=== PATIENT | female | born 1970 | race Caucasian/White ===

== ENCOUNTER 2017-04-25 11:22 | Inpatient (IN) | payer OTHER ==
[2017-04-25 11:37] VITALS: BMI 20.3
[2017-04-25 12:15] LABS: BASOPHIL 0.5 % (0-2.0); EOSINOPHIL 0.1 % (0-4.5); MCH 30.1 pg (25.7-33.7); MCHC 34.1 g/dl (32.0-36.0); MEAN CELL VOLUME 88.3 fl (80-96); MEAN PLT VOLUME 7.3 fl (7.5-11.1); NEUTROPHILS 82.9 % (42.8-82.8); PLATELET COUNT 407 K/MM3 (134-434); RDW 14.7 % (11.6-15.6); WHITE BLOOD COUNT 8.2 K/mm3 (4.0-10.0)
[2017-04-25] MEDS ORDERED: SODIUM CHLORIDE 1,000 ML IV STA (12:49)
[2017-04-25] MEDS ORDERED: ONDANSETRON 4 MG/2 ML VIAL IVPUSH ONE (12:49)
[2017-04-25] MEDS ORDERED: morphine CARPU-JECT 4 MG/1 ML DISP.SYRIN IVPUSH ONE (12:49)
--- NOTE | 2017-04-25 12:54 | PDOC ---
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 She states that the pain radiates up into her chest and arm. Admits to nausea and vomiting over the past 4 weeks. She 's been unable to keep anything down, food or liquid. Admits to excess saliva. She tried taking meclizine for her nausea with no relief. She states that her pain is currently a 10 out of 10. She describes it as a constant sharp pain. Patient is not on chemotherapy at this time. Her last dose of chemotherapy was approximately 3 weeks ago. Her her oncologist she was taking Xeliri , and the patient was unable to tolerate swallowing the pills. She also received this medication infusions however she stopped going for her infusions approximately 3 weeks ago. Denies fevers, chills, recent illness, shortness of breath, diarrhea, constipation, frequency, urgency, hematuria. Past History - Travel Traveled outside of the country in the last 30 days: No Close contact w/someone who was outside of country & ill: No - Past Medical History Allergies/Adverse Reactions: Allergies Allergy/AdvReac Type Severity Reaction Status Date / Time No Known Allergies Allergy Verified 04/25/17 11:57 Home Medications: Ambulatory Orders Famotidine [Pepcid -] 20 mg PO DAILY 04/25/17 Metoclopramide HCl 10 mg PO ASDIR PRN 04/25/17 Ondansetron [Zofran Odt -] 4 mg SL TID PRN 04/25/17 Cancer: Yes (STOMACH) COPD: No GI Disorders: Yes (ACID REFLUX) - Suicide/Smoking/Psychosocial Hx Smoking History: Never smoked Review of Systems - Review of Systems Able to Perform ROS?: Yes Comments:: 04/25/17 17:22 CONSTITUTIONAL: Absent: fever, chills, diaphoresis, generalized weakness, malaise, loss of appetite HEENT: Absent: rhinorrhea, nasal congestion, throat pain, throat swelling, difficulty swallowing, mouth swelling, ear pain, eye pain, visual Changes CARDIOVASCULAR: Present: chest pain Absent: loss of consciousness, palpitations, irregular heart rate, peripheral edema RESPIRATORY: Absent: cough, shortness of breath, dyspnea with exertion, orthopnea, wheezing, stridor, hemoptysis GASTROINTESTINAL: Absent: abdominal pain, abdominal distension, nausea, vomiting, diarrhea, constipation, melena, hematochezia GENITOURINARY: Absent: dysuria, frequency, urgency, hesitancy, hematuria, flank pain, genital pain MUSCULOSKELETAL: Absent: myalgia, arthralgia, joint swelling SKIN: Absent: rash, itching, pallor HEMATOLOGIC/IMMUNOLOGIC: Absent: easy bleeding, easy bruising, lymphadenopathy, frequent infections ENDOCRINE: Absent: unexplained weight gain, unexplained weight loss, heat intolerance, cold intolerance NEUROLOGIC: Absent: headache, focal weakness or paresthesias, dizziness, unsteady gait, seizure, mental status changes, bladder or bowel incontinence PSYCHIATRIC: Absent: anxiety, depression, suicidal or homicidal ideation, hallucinations. 04/25/17 17:23 Is the patient limited Swedish proficient: No *Physical Exam - Vital Signs Last Vital Signs Temp Pulse Resp BP Pulse Ox 97.0 F L 81 18 137/100 100 04/25/17 11:32 04/25/17 11:32 04/25/17 11:32 04/25/17 11:32 04/25/17 11:32 - Physical Exam Comments: 04/25/17 19:00 GENERAL: Under-weight. Awake and alertx3. Mild distress, c./o abdominal pain. HEENT: Normocephalic, atraumatic. PERRLA, EOMI. No conjunctival pallor. Sclera are non- icteric. Moist mucous membranes. Oropharynx is clear. NECK: Supple. Full ROM. No JVD. Carotid pulses 2+ and symmetric, without bruits. No thyromegaly. No lymphadenopathy. CARDIOVASCULAR: Regular rate and rhythm. No murmurs, rubs, or gallops. Distal pulses are 2+ and symmetric. PULMONARY: TTP of L chest wall. No evidence of respiratory distress. Lungs clear to auscultation bilaterally. No wheezing, rales or rhonchi. ABDOMINAL: Diffuse TTP, distended, mass felt over the suprapubic region. No rebound or guarding. No organomegaly. Normoactive bowel sounds. MUSCULOSKELETAL Normal range of motion at all joints. No bony deformities or tenderness. No CVA tenderness. EXTREMITIES: TTP of left extremity. No cyanosis. No clubbing. No edema. No calf tenderness. SKIN: Warm and dry. Normal capillary refill. No rashes. No jaundice. NEUROLOGICAL: Alert, awake, appropriate. Cranial nerves 2-12 intact. No deficits to light touch and temperature in face, upper extremities and lower extremities. No motor deficits in the in face, upper extremities and lower extremities. Normoreflexic in the upper and lower extremities. Normal speech. Toes are down- going bilaterally. Gait is normal without ataxia. PSYCHIATRIC: Cooperative. Good eye contact. Appropriate mood and affect. ED Treatment Course - LABORATORY CBC & Chemistry Diagram: 04/25/17 12:10 04/25/17 11:57 - ADDITIONAL ORDERS Additional order review: 04/25/17 12:10 RBC 4.99 MCV 88.3 MCHC 34.1 RDW 14.7 MPV 7.3 L Neutrophils % 82.9 H Lymphocytes % 9.9 Monocytes % 6.6 Eosinophils % 0.1 Basophils % 0.5 Medical Decision Making - Medical Decision Making 04/25/17 15:02 Patient is a 46-year-old female with past medical history of stage IV gastric adenocarcinoma not on chemo, BIBA to the emergency department today complaining of diffuse abdominal pain and weakness. Given patient history, concerned for potential SBO, perforation, worsening of cancer. We will initiate abdominal workup at this time. We'll also try to get in contact with the patient's oncologist, Dr. Anna Perez from [facility]. 1. CBC, CMP, PT/INR, UA, UC 2. EKG, CTAP with contrast 3. Morphine, Zofran 4. Re-evaluate 04/25/17 16:18 Patient is feeling a little better after morphine and Zofran. She states that her pain is now 6 out of 10. Lab work is unremarkable at this time no leukocytosis or neutropenia, H&H is stable. CT abdomen shows: 1.August bilateral pleural effusions with lower lobe atelectasis. 2.large amount of ascites. 3.enhancing material within the ascites consistent with extensive peritoneal implants. 4.no evidence of bowel obstruction or acute pathology within the abdomen or pelvis. Given results pt may benifit from a palliative pleuralcentsis. Will contact Dr. Perez for further recommendations 04/25/17 16:38 Received call from patient's oncologist. 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 Patient has undergone 11 rounds of Firi- paclotaxil chemotherapy. She most recently has been taking Xeliri, but has failed outpatient treatment due to inability to tolerate the medication. It is under her oncologist's recommendation that she consider palliative care however the family has been rescistent in the past. Agrees pt. should be worked for pleuralcentisis. Dr. Perez pager number: She would like a call at discharge regarding summary of care and to set up follow up. We will contact hospitalists at this time. 04/25/17 16:[address] Fuentes. Case was discussed. Will accept the patient for observation for pleurocentesis and palliative care consult. *DC/Admit/Observation/Transfer Diagnosis at time of Disposition: Gastric cancer Qualifiers: Malignant neoplasm of stomach location: unspecified location Qualified Code(s) : C16.9 - Malignant neoplasm of stomach, unspecified Intractable vomiting Qualifiers: Vomiting type: unspecified Nausea presence: with nausea Qualified Code(s): R11.2 - Nausea with vomiting, unspecified Ascites Qualifiers: Ascites type: malignant Qualified Code(s): R18.0 - Malignant ascites - Discharge Dispostion Condition at time of disposition: Stable Admit: Yes - Referrals - Patient Instructions - Post Discharge Activity
[2017-04-25] MEDS ORDERED: morphine SULFATE 4 MG/ML VIAL ONE (12:57)
[2017-04-25 12:58] LABS: ALBUMIN 2.8 g/dl (3.4-5.0); ANION GAP 13 (8-16); BILIRUBIN,TOTAL 1.3 mg/dL (0.2-1.0); CALCIUM 8.6 mg/dL (8.5-10.1); CO2 27 mmol/L (21-32); CREATININE 0.9 mg/dL (0.55-1.02); GLUCOSE,RANDOM 87 mg/dL (74-106); SGOT/AST 14 U/L (15-37); SGPT/ALT 13 U/L (12-78)
[2017-04-25] MEDS ORDERED: ONDANSETRON 4 MG/2 ML VIAL ONE (12:58)
[2017-04-25 13:02] LABS: ALK PHOS 80 U/L (45-117); CPK 29 IU/L (26-192); TOT PROT 6.1 g/dl (6.4-8.2); TROPONIN I < 0.02 ng/ml (0.00-0.05)
[2017-04-25 13:44] LABS: INR 1.26 (0.82-1.09); PROTHROMBIN TIME (PATIENT) 14.2 SEC (9.98-11.88)
[2017-04-25] MEDS ORDERED: ACETAMINOPHEN 1000 MG/100 ML VIAL (NON FORMULARY) IVPB ONE (17:23)
--- NOTE | 2017-04-25 17:29 | PDOC ---
*Physical Exam - Vital Signs Last Vital Signs Temp Pulse Resp BP Pulse Ox 97.0 F L 81 18 137/100 100 04/25/17 11:32 04/25/17 11:32 04/25/17 11:32 04/25/17 11:32 04/25/17 11:32 - Physical Exam General Appearance: Yes: Other (no acute distress, thin) HEENT: positive: Other (dry mucous membranes) Respiratory/Chest: positive: Lungs Clear, Normal Breath Sounds Cardiovascular: positive: Regular Rhythm, Regular Rate, S1, S2. negative: Edema Gastrointestinal/Abdominal: positive: Normal Bowel Sounds, Tender (diffuse ttp) , Flat, Soft Musculoskeletal: negative: CVA Tenderness Extremity: positive: Normal Capillary Refill Integumentary: positive: Normal Color, Dry, Warm Neurologic: positive: Fully Oriented, Alert, Normal Mood/Affect ED Treatment Course - LABORATORY CBC & Chemistry Diagram: 04/25/17 12:10 04/25/17 11:57 - ADDITIONAL ORDERS Additional order review: Laboratory Results 04/25/17 04/25/17 12:50 11:57 PT with INR 14.20 H INR 1.26 H Sodium 137 Potassium 3.7 Chloride 97 L Carbon Dioxide 27 Anion Gap 13 BUN 22 H Creatinine 0.9 Creat Clearance w eGFR > 60 Random Glucose 87 Calcium 8.6 Magnesium 2.0 Total Bilirubin 1.3 H AST 14 L ALT 13 Alkaline Phosphatase 80 Creatine Kinase 29 Troponin I < 0.02 Total Protein 6.1 L Albumin 2.8 L 04/25/17 12:10 RBC 4.99 MCV 88.3 MCHC 34.1 RDW 14.7 MPV 7.3 L Neutrophils % 82.9 H Lymphocytes % 9.9 Monocytes % 6.6 Eosinophils % 0.1 Basophils % 0.5 - Medications Given in the ED: ED Medications Discontinued Medications Generic Name Dose Route Start Last Admin Trade Name Freq PRN Reason Stop Dose Admin Sodium Chloride 1,000 mls @ 1,000 mls/hr 04/25/17 12:49 04/25/17 13:03 Normal Saline - IV 04/25/17 13:48 1,000 mls/hr ASDIR STA Administration Morphine Sulfate 4 mg 04/25/17 12:49 04/25/17 13:03 Morphine Injection - IVPUSH 04/25/17 12:50 4 mg ONCE ONE Administration Ondansetron HCl 4 mg 04/25/17 12:49 04/25/17 13:03 Zofran Injection IVPUSH 04/25/17 12:50 4 mg ONCE ONE Administration Medical Decision Making - Medical Decision Making 04/25/17 17:26 46 yo F with stage iV gastric cancer, followd by oncology at [facility], here with intractable vomiting. unable to tolerate any po at home. also c/o diffuse abd pain. severe weakness. no f/c no cough no sob no chest pain plan: r/o electrolyte abnormality, dehydration, ct r/o gastric outlet obstruction. ho admit for FTT, severe dehydration and intractable vomiting. will try to reach pt private oncologist. seen and examined, in conjunction with FABIO Garcia, agree with her plan. cirilli *DC/Admit/Observation/Transfer Diagnosis at time of Disposition: Gastric cancer, Intractable vomiting - Referrals - Patient Instructions - Post Discharge Activity
[2017-04-25] MEDS ORDERED: ACETAMINOPHEN INJECTION 100 ML IVPB ONE (17:42)
[2017-04-25] MEDS ORDERED: morphine SULFATE 4 MG/ML VIAL IVPUSH PRN (18:43)
[2017-04-25] MEDS ORDERED: ONDANSETRON 4 MG/2 ML VIAL IVPB PRN (18:43)
[2017-04-25] MEDS ORDERED: METOCLOPRAMIDE HCL 10 MG TABLET (FP) PO PRN (18:49)
--- NOTE | 2017-04-25 18:55 | HP ---
CHIEF COMPLAINT: generalized weakness with nausea and vomiting. PCP: none ; oncology HISTORY OF PRESENT ILLNESS: 46 yo F with significant PMHx of stage IV Gastric adenocarcinoma diagnosed 2015 presents with abdominal pain with intractable nausea and vomiting. She states that for the past 3 weeks she has not had much of an appetite and has had not been able to hold any food down. She also complains of constant diffuse 10/10 abdominal pain. She has also been experiencing excessive salivation. She has been vomiting for the past few days nonbloody non billous. Today she was extremely week and felt the need to come to ED. Denies CP, BOSCH, palpitations. ER course was notable for: (1)CT abdomen shows Pleural effusion and large ascitis (2)Given IVF NS (3)EKG shows NSR with no ST or T wave abnormalities. Recent Travel:Denies PAST MEDICAL HISTORY:Gastric adenocarcinoma PAST SURGICAL HISTORY: x3 Social History: Smoking:never Alcohol:denies Drugs: denies Family History: Allergies No Known Allergies Allergy (Verified 04/25/17 11:57) HOME MEDICATIONS: Home Medications Medication Instructions Recorded Famotidine [Pepcid -] 20 mg PO DAILY 04/25/17 Metoclopramide HCl 10 mg PO ASDIR PRN 04/25/17 Ondansetron [Zofran Odt -] 4 mg SL TID PRN 04/25/17 REVIEW OF SYSTEMS CONSTITUTIONAL: generalized weakness, malaise, loss of appetite, weight change Absent: fever, chills, diaphoresis, HEENT: Absent: rhinorrhea, nasal congestion, throat pain, throat swelling, difficulty swallowing, mouth swelling, ear pain, eye pain, visual changes CARDIOVASCULAR: Absent: chest pain, syncope, palpitations, irregular heart rate, lightheadedness , peripheral edema RESPIRATORY: Absent: cough, shortness of breath, dyspnea with exertion, orthopnea, wheezing, stridor, hemoptysis GASTROINTESTINAL:abdominal pain, abdominal distension, nausea, vomiting, Absent: diarrhea, constipation, melena, hematochezia GENITOURINARY: Absent: dysuria, frequency, urgency, hesitancy, hematuria, flank pain, genital pain MUSCULOSKELETAL: Absent: myalgia, arthralgia, joint swelling, back pain, neck pain SKIN: Absent: rash, itching, pallor HEMATOLOGIC/IMMUNOLOGIC: Absent: easy bleeding, easy bruising, lymphadenopathy, frequent infections ENDOCRINE: Absent: unexplained weight gain, unexplained weight loss, heat intolerance, cold intolerance NEUROLOGIC: Absent: headache, focal weakness or paresthesias, dizziness, unsteady gait, seizure, mental status changes, bladder or bowel incontinence PSYCHIATRIC: Absent: anxiety, depression, suicidal or homicidal ideation, hallucinations. PHYSICAL EXAMINATION Vital Signs - 24 hr 04/25/17 04/25/17 04/25/17 11:32 18:12 18:32 Temperature 97.0 F L Pulse Rate 81 82 Pulse Rate [ 87 Apical] Respiratory 18 18 18 Rate Blood Pressure 137/100 119/88 Blood Pressure 119/88 [Right Arm] O2 Sat by Pulse 100 98 97 Oximetry (%) GENERAL: AAOx3, NAD, Cachectic HEAD: NC/AT EYES: PERRLA,EOMI sclera anicteric, conjunctiva clear. No lid lag. EARS, NOSE, THROAT: Dry mucous membranes. NECK: Supple, NO JVD LUNGS: CTAB. No wheezes, and no crackles. No accessory muscle use. HEART:RRR, normal S1 and S2, No M/G/R. ABDOMEN: Soft, periumbilical tenderness, normoactive bowel sounds,voluntary guarding, no rebound, no masses. MUSCULOSKELETAL: No bony deformities or tenderness. No CVA tenderness. UPPER EXTREMITIES: 2+ pulses, warm, well-perfused. No cyanosis. No clubbing. No peripheral edema. LOWER EXTREMITIES: 2+ pulses, warm, well-perfused. No calf tenderness. No peripheral edema. NEUROLOGICAL: Cranial nerves II-XII intact. Normal speech. PSYCHIATRIC: Cooperative. Good eye contact. Appropriate mood and affect. SKIN: Warm, dry, no rashes or lesions noted. Laboratory Results - last 24 hr 04/25/17 04/25/17 04/25/17 11:57 12:10 12:50 WBC 8.2 RBC 4.99 Hgb 15.0 Hct 44.1 MCV 88.3 MCH 30.1 MCHC 34.1 RDW 14.7 Plt Count 407 MPV 7.3 L Neutrophils % 82.9 H Lymphocytes % 9.9 Monocytes % 6.6 Eosinophils % 0.1 Basophils % 0.5 PT with INR 14.20 H INR 1.26 H Sodium 137 Potassium 3.7 Chloride 97 L Carbon Dioxide 27 Anion Gap 13 BUN 22 H Creatinine 0.9 Creat Clearance w eGFR > 60 Random Glucose 87 Calcium 8.6 Magnesium 2.0 Total Bilirubin 1.3 H AST 14 L ALT 13 Alkaline Phosphatase 80 Creatine Kinase 29 Troponin I < 0.02 Total Protein 6.1 L Albumin 2.8 L IMAGING: * [id number] CT/ABDOMEN PELVIS CT WITH CONTR HISTORY PROVIDED: Gastric CA. Sequential axial images were obtained from the domes of the diaphragms through the symphysis pubis following the administration of both oral and intravenous contrast material. There are large, bilateral pleural effusions with extensive atelectasis of the lower lobes. There is a large amount of ascites throughout the abdomen and pelvis. There is enhancing material within the ascites, predominantly within the lower abdomen and pelvis. This is consistent with peritoneal implants. The liver, spleen, pancreas, adrenal glands and kidneys demonstrate no significant abnormalities. There is no evidence of a gastric mass or gastric outlet obstruction. There is no evidence of pneumoperitoneum, bowel obstruction or intra-abdominal abscess. Examination of the pelvis demonstrates no evidence of pelvic masses or lymphadenopathy. The uterus is somewhat enlarged with prominent endometrium. There is no evidence of bony metastases or acute abnormalities. IMPRESSION: 1. Large bilateral pleural effusions and lower lobe atelectasis. 2. Large amount of ascites. 3. Enhancing material within the ascites consistent with extensive peritoneal implants. 4. No evidence of bowel obstruction or acute pathology within the abdomen or pelvis. Please see above discussion. Reported By: David Urias MD 04/25/17 [id number] ASSESSMENT/PLAN: 46 yo F with significant PMHx of stage IV Gastric adenocarcinoma diagnosed 2015 presents with abdominal pain with intractable nausea and vomiting admitted to med/surg for intractable vomiting and nausea with inability to tolerate PO. Problem List - Problem (1) Ascites Assessment/Plan: Most likely secondary to malignancy: * CT imaging as above. * Will contact IR for possible thoracentesis. * Held AC for now * Will initiate lovenox s/p thoracentesis * Echo pending to r/o pericardial effusion. (2) Gastric cancer Assessment/Plan: * F/u with Heme/Onc Qualifiers: Qualified Code(s): C16.9 - Malignant neoplasm of stomach, unspecified (3) Intractable vomiting Assessment/Plan: * Zofran Q4h PRN for nausea. * Morphine 2mg IV PRN. * NPO for now * will advance diet as tolerated. (4) Dehydration Assessment/Plan: this is a result of poor PO intake. * Will give IVF with NS @ 100ml/hr. (5) DVT prophylaxis Assessment/Plan: Given her history of cancer * Lovenox 40mg SQ daily Visit type - Emergency Visit Emergency Visit: Yes ED Registration Date: 04/25/17 Care time: The patient presented to the Emergency Department on the above date and was hospitalized for further evaluation of their emergent condition. - New Patient This patient is new to me today: Yes Date on this admission: 04/26/17 - Critical Care Critical Care patient: No
[2017-04-25] MEDS: SODIUM CHLORIDE 1,000 ML IV SCH (18:57)
[2017-04-25 19:09] LABS: CPK 25 IU/L (26-192); TROPONIN I < 0.02 ng/ml (0.00-0.05)
[2017-04-25 19:12] LABS: URINE APPEARANCE CLEAR; URINE BILIRUBIN NEGATIVE (NEGATIVE); URINE BLOOD NEGATIVE (NEGATIVE); URINE COLOR YELLOW; URINE GLUCOSE (UA) NEGATIVE (NEGATIVE); URINE KETONE 1+ (NEGATIVE); URINE NITRITE NEGATIVE (NEGATIVE); URINE PROTEIN NEGATIVE (NEGATIVE)
--- NOTE | 2017-04-25 20:11 | PN ---
Teaching Attending Note Name of Resident: Mason Fuentes ATTENDING PHYSICIAN STATEMENT I saw and evaluated the patient. Chart, imaging, data reviewed I reviewed the resident's note and discussed the case with the resident. I agree with the resident's findings and plan as documented with modifications below. SUBJECTIVE: 46-year-old female with stage IV gastric adenocarcinoma on chemotherapy with last cycle about 3 weeks ago, follows with oncologist at [facility]. Pt c/o diffuse abdominal pain and weakness x 1day, associated with nausea and vomiting. Pain was 10/10 at its worst but has improved now after pain medications. Pt has decreased appetite and currently not tolerating PO very well. She admits to producing a "lot of saliva". She reports mild shortness of breath previously which has improved. OBJECTIVE: Last Vital Signs Temp Pulse Resp BP Pulse Ox 97.0 F L 82 18 119/88 97 04/25/17 11:32 04/25/17 18:32 04/25/17 18:32 04/25/17 18:32 04/25/17 18:32 General- NAD, appears cheerful, cachectic, wasted appearance HEENT - sunken cheeks, moist oral mucosa, no sinus tenderness Neck -supple, no masses appreciated CV -s1+, s2+ RRR, no murmurs Chest - decreased basilar breath sounds bilaterally Abdomen epigastric tenderness upon palpation, no fluid wave appreciated. BS+, no rebound tenderness Ext - no clubbing, no pedal edema appreciated Skin- no rashes appreciated Abnormal Lab Results 04/25/17 04/25/17 04/25/17 11:57 12:10 12:50 MPV 7.3 L Neutrophils % 82.9 H PT with INR 14.20 H INR 1.26 H Chloride 97 L BUN 22 H Total Bilirubin 1.3 H AST 14 L Creatine Kinase Total Protein 6.1 L Albumin 2.8 L Urine Ketones Urine Urobilinogen 04/25/17 04/25/17 18:35 18:42 MPV Neutrophils % PT with INR INR Chloride BUN Total Bilirubin AST Creatine Kinase 25 L Total Protein Albumin Urine Ketones 1+ H Urine Urobilinogen 2.[address] of abdomen/pelvis C+ seen with report- b/l pleural effusions with resultant atelectasis, peritoneal seeding. No bowel obstruction. EKG sinus rhythm seen, low voltage ASSESSMENT AND PLAN: #46yo woman with stage 4 gastric adenocarcinom a with mets to peritoneum with acute on chronic abdominal pain and inability to tolerate PO. This is likely directly related to patient's underlying malignancy. Troponin negative -IVF hydration -morphine PRN for pain control -zofran IVPB PRN for nausea/vomiting -NPO currently -attempt to advance diet as toelrated starting with clear liquids -send lipase -f/u with oncologist #B/l pleural effusion w/ atelectasis - likely related to malignancy -IR consult for therapeutic and diagnostic pleuracentesis b/l -transthoracic echo to evaluate for pericardial effusions (no clinic suspicion for cardiac tamponade at this time) #Advanced directives - -patient expressed her wishes that she would like to remain full code #DVT ppx -lovenox 30mg sc q24hrs
[2017-04-25 20:35] LABS: URINE LEUK ESTERASE Negative (NEGATIVE)
[2017-04-26] MEDS: SODIUM CHLORIDE 1,000 ML IV SCH ×2 (04:56→18:33)
[2017-04-26 09:55] LABS: INR 1.27 (0.82-1.09); PROTHROMBIN TIME (PATIENT) 14.4 SEC (9.98-11.88)
[2017-04-26 10:01] LABS: BASOPHIL 0.5 % (0-2.0); EOSINOPHIL 0.1 % (0-4.5); MCH 30.1 pg (25.7-33.7); MCHC 33.6 g/dl (32.0-36.0); MEAN CELL VOLUME 89.8 fl (80-96); MEAN PLT VOLUME 7.6 fl (7.5-11.1); NEUTROPHILS 87.7 % (42.8-82.8); PLATELET COUNT 388 K/MM3 (134-434); RDW 14.9 % (11.6-15.6); WHITE BLOOD COUNT 8.1 K/mm3 (4.0-10.0)
[2017-04-26 11:26] LABS: ALBUMIN 2.5 g/dl (3.4-5.0); ANION GAP 16 (8-16); BILIRUBIN,TOTAL 1.4 mg/dL (0.2-1.0); CALCIUM 7.8 mg/dL (8.5-10.1); CO2 20 mmol/L (21-32); CREATININE 0.6 mg/dL (0.55-1.02); GLUCOSE,RANDOM 55 mg/dL (74-106); MAGNESIUM 1.9 mg/dL (1.8-2.4); PHOSPHOROUS 3.3 mg/dL (2.5-4.9); SGOT/AST 18 U/L (15-37); SGPT/ALT 15 U/L (12-78); TOT PROT 5.6 g/dl (6.4-8.2)
[2017-04-26 11:27] LABS: ALK PHOS 131 U/L (45-117)
[2017-04-26] MEDS ORDERED: ACETAMINOPHEN 325 MG TABLET (FP) PO PRN (13:34)
[2017-04-26] MEDS: RANITIDINE HCL 150 MG TABLET (FP) PO SCH (13:48)
[2017-04-26 14:54] LABS: PLEURAL FLUID COLOR YELLOW; PLEURAL FLUID SOURCE RIGHT PLEURAL
[2017-04-26 14:55] LABS: PLEURAL FLUID APPEARANCE CLEAR
[2017-04-26 15:25] LABS: GLUCOSE,PLEURAL FLUID 63.805; TOTAL PROTEIN,PLEURAL FLUID 3.696
--- NOTE | 2017-04-26 15:42 | PN ---
Physical Exam: SUBJECTIVE: Patient seen and examined. No fever or chills. No events overnight. OBJECTIVE: Vital Signs Period Temp Pulse Resp BP Sys/Alba Pulse Ox Last 24 Hr 97.6 F-99.7 F 82-105 18-20 117-154/62-96 95-98 GENERAL: The patient is awake, alert, and fully oriented, in no acute distress, cachectic. HEAD: Normal with no signs of trauma. EYES: Extraocular movements intact, sclera anicteric, conjunctiva clear. No ptosis. LUNGS: Breath sounds equal, clear to auscultation bilaterally, no wheezes, no crackles, no accessory muscle use. HEART: Regular rate and rhythm, S1, S2 without murmur, rub or gallop. ABDOMEN: Soft, nontender, nondistended, no guarding, no rebound. EXTREMITIES: Warm, well-perfused, no edema. PSYCH: Normal mood, normal affect. SKIN: Warm, dry, normal turgor, no rashes or lesions noted Laboratory Results - last 24 hr 04/25/17 04/25/17 04/26/17 18:35 18:42 06:00 WBC 8.1 RBC 4.62 Hgb 13.9 Hct 41.5 MCV 89.8 MCH 30.1 MCHC 33.6 RDW 14.9 Plt Count 388 MPV 7.6 Neutrophils % 87.7 H Lymphocytes % 7.4 L D Monocytes % 4.3 Eosinophils % 0.1 Basophils % 0.5 PT with INR INR Sodium Potassium Chloride Carbon Dioxide Anion Gap BUN Creatinine Creat Clearance w eGFR Random Glucose Calcium Phosphorus Magnesium Total Bilirubin AST ALT Alkaline Phosphatase Creatine Kinase 25 L Troponin I < 0.02 Total Protein Albumin Lipase Urine Color Yellow Urine Appearance Clear Urine pH 5.0 Ur Specific Buckeye < 1.005 Urine Protein Negative Urine Glucose (UA) Negative Urine Ketones 1+ H Urine Blood Negative Urine Nitrite Negative Urine Bilirubin Negative Urine Urobilinogen 2.0 H Ur Leukocyte Esterase Negative Pleural Fluid Source Pleural Color Pleural Appearance Pleural WBC Pleural RBC 04/26/17 04/26/17 04/26/17 06:00 06:00 09:00 WBC RBC Hgb Hct MCV MCH MCHC RDW Plt Count MPV Neutrophils % Lymphocytes % Monocytes % Eosinophils % Basophils % PT with INR 14.40 H INR 1.27 H Sodium 138 Potassium 3.6 Chloride 102 Carbon Dioxide 20 L D Anion Gap 16 BUN 13 D Creatinine 0.6 D Creat Clearance w eGFR > 60 Random Glucose 55 L D Calcium 7.8 L Phosphorus 3.3 Magnesium 1.9 Total Bilirubin 1.4 H AST 18 D ALT 15 Alkaline Phosphatase 131 H D Creatine Kinase Troponin I Total Protein 5.6 L Albumin 2.5 L Lipase 60 L Urine Color Urine Appearance Urine pH Ur Specific [place] Urine Protein Urine Glucose (UA) Urine Ketones Urine Blood Urine Nitrite Urine Bilirubin Urine Urobilinogen Ur Leukocyte Esterase Pleural Fluid Source Pleural Color Pleural Appearance Pleural WBC Pleural RBC 04/26/17 12:30 WBC RBC Hgb Hct MCV MCH MCHC RDW Plt Count MPV Neutrophils % Lymphocytes % Monocytes % Eosinophils % Basophils % PT with INR INR Sodium Potassium Chloride Carbon Dioxide Anion Gap BUN Creatinine Creat Clearance w eGFR Random Glucose Calcium Phosphorus Magnesium Total Bilirubin AST ALT Alkaline Phosphatase Creatine Kinase Troponin I Total Protein Albumin Lipase Urine Color Urine Appearance Urine pH Ur Specific [place] Urine Protein Urine Glucose (UA) Urine Ketones Urine Blood Urine Nitrite Urine Bilirubin Urine Urobilinogen Ur Leukocyte Esterase Pleural Fluid Source Right pleural Pleural Color Yellow Pleural Appearance Clear Pleural WBC 243 Pleural RBC 1,113 Active Medications Generic Name Dose Route Start Last Admin Trade Name Freq PRN Reason Stop Dose Admin Acetaminophen 650 mg 04/26/17 13:34 04/26/17 13:49 Tylenol - PO 650 mg Q6H PRN Administration FEVER OR PAIN Sodium Chloride 1,000 mls @ 100 mls/hr 04/25/17 18:45 04/26/17 04:56 Normal Saline - IV 100 mls/hr ASDIR AZEB Administration Metoclopramide HCl 10 mg 04/25/17 18:49 Reglan - PO Q8H PRN NAUSEA Morphine Sulfate 2 mg 04/25/17 18:43 Morphine Sulfate IVPUSH Q4H PRN PAIN Ondansetron HCl 8 mg 04/25/17 18:43 Zofran Injection IVPB Q6H PRN NAUSEA AND/OR VOMITING Ranitidine HCl 150 mg 04/26/17 10:00 04/26/17 13:48 Zantac - PO 150 mg DAILY AZEB Administration ASSESSMENT/PLAN: 46yo F with PMH of 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 # intractable vomiting - continue Zofran, Reglan, and Zantac - continue IVFs # abdominal pain - improved - Morphine 2mg IVpush q4hr prn for pain # freedom pleural effusion and ascites - s/p freedom thoracentesis and paracentesis # gastric Ca - f/u with Oncologist as outpatient # FEN - Fluids: NS @ 100 ml/hr - Electrolytes: wnl, continue to monitor - Nutrition: regular diet # Prophylaxis - DVT ppx with Lovenox 40mg SQ daily - deconditioning ppx with PT Visit type - Emergency Visit Emergency Visit: Yes ED Registration Date: 04/25/17 Care time: The patient presented to the Emergency Department on the above date and was hospitalized for further evaluation of their emergent condition. - New Patient This patient is new to me today: Yes Date on this admission: 04/26/17 - Critical Care Critical Care patient: No
--- NOTE | 2017-04-26 16:37 | EKG ---
Test Reason : Blood Pressure : / mmHG Vent. Rate : 089 BPM Atrial Rate : 089 BPM P-R Int : 130 ms QRS Dur : 082 ms QT Int : 368 ms P-R-T Axes : 036 040 039 degrees QTc Int : 447 ms NORMAL SINUS RHYTHM LOW VOLTAGE QRS SEPTAL INFARCT , AGE UNDETERMINED ABNORMAL ECG NO PREVIOUS ECGS AVAILABLE Confirmed by ROSELIA WALLIS MD ([id number]) on 04/26/2017 4:37:27 PM Referred By: Confirmed By:ROSELIA WALLIS MD
[2017-04-26] MEDS: ENOXAPARIN NA (PORCINE) 40 MG/0.4 ML DISP.SYRIN SQ SCH (16:41)
[2017-04-26 17:49] LABS: PLEURAL FLUID LYMPHOCYTES 90 %; PLEURAL FLUID NEUTROPHIL 1 %
--- NOTE | 2017-04-26 20:12 | PN ---
Teaching Attending Note Name of Resident: Asuncion Alvarez ATTENDING PHYSICIAN STATEMENT I saw and evaluated the patient. I reviewed the resident's note and discussed the case with the resident. I agree with the resident's findings and plan as documented. SUBJECTIVE: Patient is feeling better less nausea and vomiting, her symptoms are improving. OBJECTIVE: Vital Signs Temperature 97.6 F 04/26/17 14:25 Pulse Rate 87 04/26/17 14:25 Respiratory Rate 18 04/26/17 14:25 Blood Pressure 154/94 04/26/17 14:25 O2 Sat by Pulse Oximetry (%) 95 04/26/17 08:37 CBCD WBC 8.1 K/mm3 (4.0-10.0) 04/26/17 06:00 RBC 4.62 M/mm3 (3.60-5.2) 04/26/17 06:00 Hgb 13.9 GM/dL (10.7-15.3) 04/26/17 06:00 Hct 41.5 % (32.4-45.2) 04/26/17 06:00 MCV 89.8 fl (80-96) 04/26/17 06:00 MCHC 33.6 g/dl (32.0-36.0) 04/26/17 06:00 RDW 14.9 % (11.6-15.6) 04/26/17 06:00 Plt Count 388 K/MM3 (134-434) 04/26/17 06:00 MPV 7.6 fl (7.5-11.1) 04/26/17 06:00 CMP Sodium 138 mmol/L (136-145) 04/26/17 06:00 Potassium 3.6 mmol/L (3.5-5.1) 04/26/17 06:00 Chloride 102 mmol/L (98-107) 04/26/17 06:00 Carbon Dioxide 20 mmol/L (21-32) L D 04/26/17 06:00 Anion Gap 16 (8-16) 04/26/17 06:00 BUN 13 mg/dL (7-18) D 04/26/17 06:00 Creatinine 0.6 mg/dL (0.55-1.02) D 04/26/17 06:00 Creat Clearance w eGFR > 60 (>60) 04/26/17 06:00 Random Glucose 55 mg/dL (74-106) L D 04/26/17 06:00 Calcium 7.8 mg/dL (8.5-10.1) L 04/26/17 06:00 Total Bilirubin 1.4 mg/dL (0.2-1.0) H 04/26/17 06:00 AST 18 U/L (15-37) D 04/26/17 06:00 ALT 15 U/L (12-78) 04/26/17 06:00 Alkaline Phosphatase 131 U/L (45-117) H D 04/26/17 06:00 Total Protein 5.6 g/dl (6.4-8.2) L 04/26/17 06:00 Albumin 2.5 g/dl (3.4-5.0) L 04/26/17 06:00 CARDIAC ENZYMES Creatine Kinase 25 IU/L (26-192) L 04/25/17 18:35 Troponin I < 0.02 ng/ml (0.00-0.05) 04/25/17 18:35 Current Medications Generic Name Dose Route Start Last Admin Trade Name Freq PRN Reason Stop Dose Admin Acetaminophen 650 mg 04/26/17 13:34 04/26/17 13:49 Tylenol - PO 650 mg Q6H PRN Administration FEVER OR PAIN Enoxaparin Sodium 40 mg 04/26/17 15:45 04/26/17 16:41 Lovenox - SQ 40 mg DAILY AZEB Administration Sodium Chloride 1,000 mls @ 100 mls/hr 04/25/17 18:45 04/26/17 18:33 Normal Saline - IV 100 mls/hr ASDIR AZEB Administration Metoclopramide HCl 10 mg 04/25/17 18:49 Reglan - PO Q8H PRN NAUSEA Morphine Sulfate 2 mg 04/25/17 18:43 Morphine Sulfate IVPUSH Q4H PRN PAIN Ondansetron HCl 8 mg 04/25/17 18:43 Zofran Injection IVPB Q6H PRN NAUSEA AND/OR VOMITING Ranitidine HCl 150 mg 04/26/17 10:00 04/26/17 13:48 Zantac - PO 150 mg DAILY AZEB Administration Home Medications Medication Instructions Recorded Famotidine [Pepcid -] 20 mg PO DAILY 04/25/17 Metoclopramide HCl 10 mg PO ASDIR PRN 04/25/17 Ondansetron [Zofran Odt -] 4 mg SL TID PRN 04/25/17 PE: per resident's note ASSESSMENT AND PLAN: Patient is a 46yo woman with 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 #B/l pleural effusion w/ atelectasis - related to malignancy, going for therapeutic and diagnostic pleuracentesis and thoracocentesis by IR. #hx of Gastric Adenoca being treated at [facility]. #Intractable vomiting on Zofran, Reglan, and Zantac ,and IVF continue # abdominal pain improved on IV Morphine 2mg IVpush q4hr prn for pain #Advanced directives - patient expressed her wishes that she would like to remain full code #DVT ppx -lovenox 40mg
[2017-04-27] MEDS: SODIUM CHLORIDE 1,000 ML IV SCH (04:30)
[2017-04-27 07:05] LABS: BASOPHIL 0.6 % (0-2.0); EOSINOPHIL 0.2 % (0-4.5); MCH 30.4 pg (25.7-33.7); MCHC 34.1 g/dl (32.0-36.0); MEAN CELL VOLUME 89.1 fl (80-96); MEAN PLT VOLUME 7.4 fl (7.5-11.1); PLATELET COUNT 375 K/MM3 (134-434); RDW 14.9 % (11.6-15.6); WHITE BLOOD COUNT 8.2 K/mm3 (4.0-10.0)
[2017-04-27 07:48] LABS: ALBUMIN 2.2 g/dl (3.4-5.0); GLUCOSE,RANDOM 57 mg/dL (74-106); SGOT/AST 12 U/L (15-37); SGPT/ALT 12 U/L (12-78)
[2017-04-27 08:01] LABS: ALK PHOS 99 U/L (45-117); ANION GAP 15 (8-16); CO2 18 mmol/L (21-32); CREATININE 0.5 mg/dL (0.55-1.02); TOT PROT 5.3 g/dl (6.4-8.2)
--- NOTE | 2017-04-27 10:40 | PN ---
Physical Exam: SUBJECTIVE: Patient seen and examined. Pt denies fever, chills, abdominal pain. No events overnight. OBJECTIVE: Vital Signs Period Temp Pulse Resp BP Sys/Alba Pulse Ox Last 24 Hr 97.4 F-98.4 F 86-90 16-20 132-154/70-98 96 GENERAL: The patient is awake, alert, and fully oriented, in no acute distress, cachectic. HEAD: Normal with no signs of trauma. ENT: Moist mucous membranes. LUNGS: Breath sounds equal, clear to auscultation bilaterally, no wheezes, no crackles, no accessory muscle use. HEART: Regular rate and rhythm, +S1/S2. ABDOMEN: Irregular masses palpated in Right upper and lower quadrants. Soft, nontender, nondistended, no guarding, no rebound. EXTREMITIES: Warm, well-perfused, no edema. PSYCH: Normal mood, normal affect. SKIN: Warm, dry, normal turgor, no rashes or lesions noted Laboratory Results - last 24 hr 04/26/17 04/26/17 04/26/17 06:00 06:00 12:30 WBC RBC Hgb Hct MCV MCH MCHC RDW Plt Count MPV Neutrophils % Lymphocytes % Monocytes % Eosinophils % Basophils % Sodium 138 Potassium 3.6 Chloride 102 Carbon Dioxide 20 L D Anion Gap 16 BUN 13 D Creatinine 0.6 D Creat Clearance w eGFR > 60 Random Glucose 55 L D Calcium 7.8 L Phosphorus 3.3 Magnesium 1.9 Total Bilirubin 1.4 H AST 18 D ALT 15 Alkaline Phosphatase 131 H D Total Protein 5.6 L Albumin 2.5 L Lipase 60 L Fluid Amylase 23.8 Pleural Fluid Source Right pleural Pleural Color Yellow Pleural Appearance Clear Pleural WBC 243 Pleural RBC 1,113 Pleural Neutrophils 1 Pleural Lymphocytes 90 Pleural Monocytes 9 Pleural Chloride TNP Pleural Total Protein 3.696 Pleural Albumin 2 Pleural LDH 122.8 Pleural Glucose 63.805 Pleural Amylase 23.858 Pleural Cholesterol < 50 Pleural Triglycerides 15 04/27/17 04/27/17 06:10 06:10 WBC 8.2 RBC 4.44 Hgb 13.5 Hct 39.6 MCV 89.1 MCH 30.4 MCHC 34.1 RDW 14.9 Plt Count 375 MPV 7.4 L Neutrophils % 86.0 H Lymphocytes % 7.2 L Monocytes % 6.0 Eosinophils % 0.2 D Basophils % 0.6 Sodium 139 Potassium 3.7 Chloride 106 Carbon Dioxide 18 L Anion Gap 15 BUN 11 Creatinine 0.5 L Creat Clearance w eGFR > 60 Random Glucose 57 L Calcium 8.0 L Phosphorus Magnesium Total Bilirubin 1.0 D AST 12 L D ALT 12 Alkaline Phosphatase 99 D Total Protein 5.3 L Albumin 2.2 L Lipase Fluid Amylase Pleural Fluid Source Pleural Color Pleural Appearance Pleural WBC Pleural RBC Pleural Neutrophils Pleural Lymphocytes Pleural Monocytes Pleural Chloride Pleural Total Protein Pleural Albumin Pleural LDH Pleural Glucose Pleural Amylase Pleural Cholesterol Pleural Triglycerides Active Medications Generic Name Dose Route Start Last Admin Trade Name Freq PRN Reason Stop Dose Admin Acetaminophen 650 mg 04/26/17 13:34 04/26/17 13:49 Tylenol - PO 650 mg Q6H PRN Administration FEVER OR PAIN Enoxaparin Sodium 40 mg 04/26/17 15:45 04/26/17 16:41 Lovenox - SQ 40 mg DAILY AZEB Administration Sodium Chloride 1,000 mls @ 100 mls/hr 04/25/17 18:45 04/27/17 04:30 Normal Saline - IV 100 mls/hr ASDIR AZEB Administration Metoclopramide HCl 10 mg 04/25/17 18:49 Reglan - PO Q8H PRN NAUSEA Morphine Sulfate 2 mg 04/25/17 18:43 Morphine Sulfate IVPUSH Q4H PRN PAIN Ondansetron HCl 8 mg 04/25/17 18:43 Zofran Injection IVPB Q6H PRN NAUSEA AND/OR VOMITING Ranitidine HCl 150 mg 04/26/17 10:00 04/26/17 13:48 Zantac - PO 150 mg DAILY AZEB Administration IMAGIN04/26/17 CXR -> no pneumothorax, freedom pleural effusions moderate in size on Right with multisegment atelectasis and/or consolidation in freedom lungs. 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 # intractable vomiting - continue Zantac, Zofran prn, and Reglan prn - continue IVFs # abdominal pain - improved - s/p paracentesis today, 2.7L removed - s/p thoracentesis yesterday - f/u pleural and perotineal fluid cultures - continue Morphine prn for pain # hypersalivation - Scopolamine patch added # gastric Ca - f/u with Oncologist as outpatient # FEN - Fluids: NS @ 100 ml/hr - Electrolytes: wnl, continue to monitor - Nutrition: regular diet # Prophylaxis - DVT ppx with Lovenox - deconditioning ppx with PT Visit type - Emergency Visit Emergency Visit: Yes ED Registration Date: 04/25/17 Care time: The patient presented to the Emergency Department on the above date and was hospitalized for further evaluation of their emergent condition. - New Patient This patient is new to me today: No - Critical Care Critical Care patient: No
[2017-04-27] MEDS: ENOXAPARIN NA (PORCINE) 40 MG/0.4 ML DISP.SYRIN SQ SCH (11:16)
[2017-04-27] MEDS: RANITIDINE HCL 150 MG TABLET (FP) PO SCH (11:16)
[2017-04-27 12:41] LABS: PERITONEAL FLUID LYMPHOCYTE 50 %; PERITONEAL FLUID MONOCYTE 10 %; PERITONEAL FLUID NEUTROPHIL 40 %
[2017-04-27 14:55] VITALS: BP 136/99; PULSE 88; TEMP 98.3
[2017-04-27] MEDS ORDERED: SCOPOLAMINE HYDROBROMIDE 1 PATCH PATCH.TD72 TD SCH (16:15)
--- NOTE | 2017-04-27 16:22 | PN ---
Teaching Attending Note Name of Resident: Asuncion Alvarez ATTENDING PHYSICIAN STATEMENT I saw and evaluated the patient. I reviewed the resident's note and discussed the case with the resident. I agree with the resident's findings and plan as documented. SUBJECTIVE: Patient is feeling better, wants to go home and follow up with her doctors at [facility]. Denies any fever, no shortness of breath. OBJECTIVE: Vital Signs Temperature 98.3 F 04/27/17 14:54 Pulse Rate 88 04/27/17 14:54 Respiratory Rate 18 04/27/17 14:54 Blood Pressure 136/99 04/27/17 14:54 O2 Sat by Pulse Oximetry (%) 96 04/27/17 08:00 CBCD WBC 8.2 K/mm3 (4.0-10.0) 04/27/17 06:10 RBC 4.44 M/mm3 (3.60-5.2) 04/27/17 06:10 Hgb 13.5 GM/dL (10.7-15.3) 04/27/17 06:10 Hct 39.6 % (32.4-45.2) 04/27/17 06:10 MCV 89.1 fl (80-96) 04/27/17 06:10 MCHC 34.1 g/dl (32.0-36.0) 04/27/17 06:10 RDW 14.9 % (11.6-15.6) 04/27/17 06:10 Plt Count 375 K/MM3 (134-434) 04/27/17 06:10 MPV 7.4 fl (7.5-11.1) L 04/27/17 06:10 CMP Sodium 139 mmol/L (136-145) 04/27/17 06:10 Potassium 3.7 mmol/L (3.5-5.1) 04/27/17 06:10 Chloride 106 mmol/L (98-107) 04/27/17 06:10 Carbon Dioxide 18 mmol/L (21-32) L 04/27/17 06:10 Anion Gap 15 (8-16) 04/27/17 06:10 BUN 11 mg/dL (7-18) 04/27/17 06:10 Creatinine 0.5 mg/dL (0.55-1.02) L 04/27/17 06:10 Creat Clearance w eGFR > 60 (>60) 04/27/17 06:10 Random Glucose 57 mg/dL (74-106) L 04/27/17 06:10 Calcium 8.0 mg/dL (8.5-10.1) L 04/27/17 06:10 Total Bilirubin 1.0 mg/dL (0.2-1.0) D 04/27/17 06:10 AST 12 U/L (15-37) L D 04/27/17 06:10 ALT 12 U/L (12-78) 04/27/17 06:10 Alkaline Phosphatase 99 U/L (45-117) D 04/27/17 06:10 Total Protein 5.3 g/dl (6.4-8.2) L 04/27/17 06:10 Albumin 2.2 g/dl (3.4-5.0) L 04/27/17 06:10 CARDIAC ENZYMES Creatine Kinase 25 IU/L (26-192) L 04/25/17 18:35 Troponin I < 0.02 ng/ml (0.00-0.05) 04/25/17 18:35 Current Medications Generic Name Dose Route Start Last Admin Trade Name Freq PRN Reason Stop Dose Admin Acetaminophen 650 mg 04/26/17 13:34 04/26/17 13:49 Tylenol - PO 650 mg Q6H PRN Administration FEVER OR PAIN Enoxaparin Sodium 40 mg 04/26/17 15:45 04/27/17 11:16 Lovenox - SQ 40 mg DAILY AZEB Administration Sodium Chloride 1,000 mls @ 100 mls/hr 04/25/17 18:45 04/27/17 04:30 Normal Saline - IV 100 mls/hr ASDIR AZEB Administration Metoclopramide HCl 10 mg 04/25/17 18:49 Reglan - PO Q8H PRN NAUSEA Morphine Sulfate 2 mg 04/25/17 18:43 Morphine Sulfate IVPUSH Q4H PRN PAIN Ondansetron HCl 8 mg 04/25/17 18:43 Zofran Injection IVPB Q6H PRN NAUSEA AND/OR VOMITING Ranitidine HCl 150 mg 04/26/17 10:00 04/27/17 11:16 Zantac - PO 150 mg DAILY AZEB Administration Scopolamine HBr 1 patch 04/27/17 16:15 Transderm-Scop - TD Q72H [facility] PE:per resident's note ASSESSMENT AND PLAN: Patient is a 46yo woman with 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 # B/l pleural effusion w/ atelectasis -s/p therapeutic and diagnostic pleuracentesis and thoracocentesis by IR. Patient is being discharged today , is given the CD to take it to her Oncologist. Patient will follow with her oncologist. # Increased salivary secretions: given scopalamine patch x one only since did not want any Prescription. #hx of Gastric Adenoca being treated at [facility]. #Vomiting and nausea improved # abdominal pain improved on IV Morphine 2mg IVpush q4hr prn for pain #Advanced directives - patient expressed her wishes that she would like to remain full code Discharge patient home.
--- NOTE | 2017-04-27 22:31 | DS ---
Physical Exam: SUBJECTIVE: Patient seen and examined. Pt denies fever, chills, abdominal pain. No events overnight. OBJECTIVE: Vital Signs Period Temp Pulse Resp BP Sys/Alba Pulse Ox Last 24 Hr 97.4 F-98.3 F 86-88 16-18 132-136/96-99 96-96 PHYSICAL EXAM GENERAL: The patient is awake, alert, and fully oriented, in no acute distress, cachectic. HEAD: Normal with no signs of trauma. ENT: Moist mucous membranes. LUNGS: Breath sounds equal, clear to auscultation bilaterally, no wheezes, no crackles, no accessory muscle use. HEART: Regular rate and rhythm, +S1/S2. ABDOMEN: Irregular masses palpated in Right upper and lower quadrants. Soft, nontender, nondistended, no guarding, no rebound. EXTREMITIES: Warm, well-perfused, no edema. PSYCH: Normal mood, normal affect. SKIN: Warm, dry, normal turgor, no rashes or lesions noted LABS Laboratory Results - last 24 hr 04/27/17 04/27/17 04/27/17 06:10 06:10 10:30 WBC 8.2 RBC 4.44 Hgb 13.5 Hct 39.6 MCV 89.1 MCH 30.4 MCHC 34.1 RDW 14.9 Plt Count 375 MPV 7.4 L Neutrophils % 86.0 H Lymphocytes % 7.2 L Monocytes % 6.0 Eosinophils % 0.2 D Basophils % 0.6 Sodium 139 Potassium 3.7 Chloride 106 Carbon Dioxide 18 L Anion Gap 15 BUN 11 Creatinine 0.5 L Creat Clearance w eGFR > 60 Random Glucose 57 L Calcium 8.0 L Total Bilirubin 1.0 D AST 12 L D ALT 12 Alkaline Phosphatase 99 D Total Protein 5.3 L Albumin 2.2 L Peritoneal WBC 289 Peritoneal RBC 263 Periton Neutrophils 40 Periton Lymphocytes 50 Peritoneal Monocytes 10 Peritoneal Tot Protein 3 Peritoneal Albumin 2 Peritoneal LDH 147 Peritoneal Glucose 66 Peritoneal Amylase 18 HOSPITAL COURSE: Date of Admission:04/25/17 Date of Discharge: 04/27/17 46yo F with PMH of 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 Pt's c/o vomiting was treated with prn Zofran, prn Reglan, Zantac, and IVFs. Pt's abdominal pain was treated with paracentesis (which removed 2.7L), thoracentesis, and prn Morphine for pain. Pt 's hypersalivation was treated with a Scopolamine patch. 04/25/17 CT Ab/Pelvis -> (1) large johan pleural effusions and lower lob atelectasis; (2) large ascites with enhancing material consistent with extensive peritoneal implants; (3) no acute pathology in abdomen or pelvis noted. 04/26/17 CXR -> no pneumothorax. Johan pleural effusions (moderate size on Right side) with multisegmental atelectasis and/or consolidation in johan lungs. 04/26/17 Echo -> johan ventricles normal in size and function. 04/26/17 Pleural Fluid culture (-) 04/27/17 Peritoneal Fluid culture (-) Pt walked 100 feet with PT. Pt stable for discharge home. Minutes to complete discharge: 35 Discharge Summary Reason For Visit: ASCITES/MALGN NEOPL OF STOMACH/INTR VOM Condition: Improved - Instructions Diet, Activity, Other Instructions: You were treated for severe vomiting and abdominal pain. Please continue your medications as prescribed. Please eat a regular diet and resume physical activity as tolerated. Please schedule a follow-up appointment with your Oncologist (Dr. Anna Perez at [facility]) within 1 week of leaving the hospital. Please return to the hospital immediately if you experience persistent or increased abdominal pain or vomiting, or for any medical emergency. Disposition: HOME - Home Medications Comprehensive Discharge Medication List: Ambulatory Orders Famotidine [Pepcid -] 20 mg PO DAILY 04/25/17 Metoclopramide HCl 10 mg PO ASDIR PRN 04/25/17 Ondansetron [Zofran Odt -] 4 mg SL TID PRN 04/25/17 Acetaminophen [Tylenol .Regular Strength -] 650 mg PO Q6H PRN tablet 04/27/17 Scopolamine Hydrobromide [Transderm-Scop -] 1 patch TD Q72H #4 patch.[id number] This patient is new to me today: No Emergency Visit: Yes ED Registration Date: 04/25/17 Care time: The patient presented to the Emergency Department on the above date and was hospitalized for further evaluation of their emergent condition. Critical Care patient: No - Discharge Referral Referred to [facility] Med P.C.: No
--- NOTE | 2017-04-30 15:55 | PATH ---
Cytology Non-Gynecological Report Patient Name: FARA CALLE [facility]. Rec. #: [id number] /Age/Gender: 1970 (Age: 46) / F Account: [id number] Location: [address] [place] [address] Taken: 04/26/2017 Received: 04/26/2017 Reported: 04/30/2017 Physicians: Abdulaziz Toussaint M.D. Specimen(s) Received A: RIGHT PLEURAL FLUID B: RIGHT PLEURAL FLUID Clinical History Pleural effusion, ascites, gastric cancer Final Diagnosis A. PLEURAL FLUID, THORACENTESIS: SATISFACTORY FOR EVALUATION NO MALIGNANT CELLS IDENTIFIED. REACTIVE MESOTHELIAL CELLS AND LYMPHOCYTES PRESENT. B. PLEURAL FLUID, THORACENTESIS: SATISFACTORY FOR EVALUATION NO MALIGNANT CELLS IDENTIFIED. REACTIVE MESOTHELIAL CELLS AND LYMPHOCYTES PRESENT. COMMENT: Immunohistochemical stains performed at [place], [place] ([id number]) and interpreted at [facility] show reactive mesothelial cells are positive for D2 -40 and calretinin, while negative for MOC31 and BerEp4. See concurrent material [id number]. Electronically Signed Fara Sanchez M.D. Gross Description A. Approximately 50 cc of yellow fluid received fixed in 50% alcohol. Two cytofunnels and one cellblock prepared. B. Approximately 1000 cc of yellow fluid received fresh. Two cytofunnels and one cellblock prepared.
--- NOTE | 2017-05-03 13:57 | PATH ---
Cytology Non-Gynecological Report Patient Name: CODY CALLE [facility]. Rec. #: [id number] /Age/Gender: 1970 (Age: 46) / F Account: [id number] Location: [address] [place] [address] Taken: 04/27/2017 Received: 04/27/2017 Reported: 05/03/2017 Physicians: Jeff Mas M.D. PHYSICIAN EMERGENCY DEPT Specimen(s) Received A: PERITONEAL FLUID B: PERITONEAL FLUID Clinical History Ascites Final Diagnosis A. ABDOMINAL FLUID, PARACENTESIS: SATISFACTORY FOR EVALUATION. NO MALIGNANT CELLS IDENTIFIED. REACTIVE MESOTHELIAL CELLS AND LYMPHOCYTES PRESENT. B. ABDOMINAL FLUID, PARACENTESIS: SATISFACTORY FOR EVALUATION. NO MALIGNANT CELLS IDENTIFIED. REACTIVE MESOTHELIAL CELLS AND LYMPHOCYTES PRESENT. Comment: Immunohistochemical stains performed at [place], [place] ([id number]) and interpreted at [facility] show the mesothelial cells are positive for D2- 40 and focally for calretinin, while negative for ISHA, MOC31 and Cas-Ep4 (high back ground staining). See prior pleural fluid material ([id number]). Electronically Signed Cody Sanchez M.D. Gross Description A. Approximately 50 cc of yellow fluid received fixed in 50% alcohol. Two cytofunnels and one cellblock prepared. B. Approximately 3000 cc of yellow fluid received fresh. Two cytofunnels and one cellblock prepared.
== END 2017-04-27 17:26 | disposition home or self-care (01) | DRG 229 ==
LOC: JER 11:22 → JERBED 17:31 → OBSVTOIN 18:43 → J6S 19:25
PROVIDERS: ADMIT Internal Medicine; ATTEND Internal Medicine
PROC: 0W993ZX Drainage of Right Pleural Cavity, Percutaneous Approach, Diagnostic (ICD-10-PCS; 2017-04-26)
PROC: 0W9G3ZX Drainage of Peritoneal Cavity, Percutaneous Approach, Diagnostic (ICD-10-PCS; principal; 2017-04-27)
DX: C16.9 Malignant neoplasm of stomach, unspecified (principal); E43 Unspecified severe protein-calorie malnutrition; R64 Cachexia; J90 Pleural effusion, not elsewhere classified; C78.6 Secondary malignant neoplasm of retroperitoneum and peritoneum; R62.7 Adult failure to thrive; R18.8 Other ascites; K21.9 Gastro-esophageal reflux disease without esophagitis; J98.11 Atelectasis; R11.2 Nausea with vomiting, unspecified; E86.0 Dehydration; Z68.20 Body mass index [BMI] 20.0-20.9, adult; K11.7 Disturbances of salivary secretion
CPT/HCPCS: 36415; 71010-TC; 74177-TC; 76942; 76942-TC; 80053; 81003; 82042; 82150; 82550; 82945; 83615; 83690; 83735; 84100; 84157; 84311; 84478; 84484; 85025; 85610; 87070; 87075; 87102; 87116; 87205; 87206; 87210; 88108; 88305-TC; 89051; 93005; 93010; 93306-TC; 97116-GP; 97161-GP; 99284-25; G0378; Q9967